=== PATIENT | male | born 1970 | race Caucasian/White ===

== ENCOUNTER 2017-09-13 14:53 | Emergency (ER) | payer BC ==
--- NOTE | 2017-09-13 14:55 | EDM.PDOC ---
ED HPI GENERAL MEDICAL PROBLEM - General Chief Complaint: Neuro Symptoms/Deficits Stated Complaint: STROKE, AMB Time Seen by Provider: 09/13/17 14:55 Source of Information: Reports: Patient, Old Records, Provider (Dr. Owens), RN , RN Notes Reviewed History Limitations: Reports: No Limitations - History of Present Illness INITIAL COMMENTS - FREE TEXT/NARRATIVE: Pt sent to ER from clinic by wheelchair by Dr. Owens for evaluation of possible stroke. Pt reports onset of tingling in the left side of the tongue, left face, and left upper and lower extremities. Pt reports the left arm and leg feel tired and slightly heavy, but not weak. He denies facial droop, headache, slurred speech, difficulty swallowing, visual changes, chest pain, palpitations, lightheadedness, syncope, or any other symptoms. Pt reports the symptoms began on Sunday, September 08. Onset Date: 09/08/17 Duration: Constant, Waxing/Waning - Related Data Allergies Allergy/AdvReac Type Severity Reaction Status Date / Time codeine Allergy Shortness Verified 09/13/17 15:26 of Breath Home Meds: Home Meds Ezetimibe 10 mg PO DAILY 09/13/17 [History] Pravastatin Sodium 80 mg PO DAILY 09/13/17 [History] Past Medical History Cardiovascular History: Reports: High Cholesterol Social & Family History - Family History Cardiac: Reports: CAD (father), Pacemaker (father) GI: Reports: Other (See Below) (colitis: mother) - Tobacco Use Smoking Status *Q: Never Smoker Second Hand Smoke Exposure: No - Alcohol Use Alcohol Use History: Yes Alcohol Use Frequency: Socially - Recreational Drug Use Recreational Drug Use: No - Living Situation & Occupation Living situation: Reports: , with Family Occupation: Employed ED ROS GENERAL - Review of Systems Review Of Systems: ROS reveals no pertinent complaints other than HPI. ED EXAM, NEURO - Physical Exam Exam: See Below Exam Limited By: No Limitations General Appearance: Alert, WD/WN, No Apparent Distress Eye Exam: Bilateral Eye: EOMI, Normal Inspection, PERRL Ears: Normal External Exam, Hearing Grossly Normal Nose: Normal Inspection, Normal Mucosa, No Blood Throat/Mouth: Normal Inspection, Normal Lips, Normal Teeth, Normal Gums, Normal Oropharynx, Normal Voice, No Airway Compromise Head Exam: Atraumatic, Normocephalic Neck: Normal Inspection, Supple, Non-Tender, Full Range of Motion. No: Carotid Bruit Respiratory/Chest: No Respiratory Distress, Lungs Clear, Normal Breath Sounds, No Accessory Muscle Use, Chest Non-Tender Cardiovascular: Normal Peripheral Pulses, Regular Rate, Rhythm, No Edema, No Gallop, No JVD, No Murmur, No Rub GI/Abdominal: Normal Bowel Sounds, Soft, Non-Tender, No Organomegaly, No Distention, No Abnormal Bruit, No Mass (Male) Exam: Deferred Rectal (Males) Exam: Deferred Neurological: Alert, Normal Mood/Affect, Normal Dorsiflexion, CN II-XII Intact, Normal Plantar Flexion, Normal Gait, Normal Reflexes, No Motor/Sensory Deficits , Oriented x 3, Other (See RN doc. of NIH stroke scale. NIH score: 0) Back Exam: Normal Inspection, Full Range of Motion, NT Extremities: Normal Inspection, Normal Range of Motion, Non-Tender, No Pedal Edema, Normal Capillary Refill Psychiatric: Normal Affect, Normal Mood Skin Exam: Warm, Dry, Intact, Normal Color, No Rash EKG INTERPRETATION EKG Date: 09/13/17 Time: 15:05 Rhythm: Other (SR) Rate (Beats/Min): 57 [place]: LAD-Left [place] Deviation P-Wave: Present QRS: Normal ST-T: Normal QT: Normal Comparison: NA - No Prior EKG Course - Vital Signs Last Recorded V/S: Last Vital Signs Temp 36.0 C 09/13/17 15:19 Pulse 62 09/13/17 15:19 Resp 14 09/13/17 15:19 BP 130/81 09/13/17 15:19 Pulse Ox 96 09/13/17 15:19 - Orders/Labs/Meds Orders: Active Orders 24 hr Category Date Time Status Blood Glucose Check, Bedside [RC] ONETIME Care 09/13/17 14:57 Active EKG 12 Lead [EKG Documentation Completion] [RC] STAT Care 09/13/17 14:56 Active NIH Stroke Scale [RC] ASDIRECTED Care 09/13/17 14:56 Active Peripheral IV Care [RC] . DIRECTED Care 09/13/17 14:57 Active DRUG SCREEN URINE BIORAD [URCHEM] Stat Lab 09/13/17 15:45 Ordered UA W/MICROSCOPIC [URIN] Stat Lab 09/13/17 15:45 Ordered Sodium Chloride 0.9% [Saline Flush] Med 09/13/17 14:57 Active 10 ml FLUSH ASDIRECTED PRN Peripheral IV Insertion Adult [OM.PC] Stat Oth 09/13/17 14:56 Ordered Medication Orders Sodium Chloride (Saline Flush) 10 ml FLUSH ASDIRECTED PRN PRN Reason: Keep Vein Open Last Admin: 09/13/17 15:05 Dose: 10 ml Labs: Laboratory Tests 09/13/17 09/13/17 09/13/17 Range/Units 15:08 15:08 15:08 WBC 7.3 (5.0-10.0) 10^3/uL RBC 4.96 (4.6-6.2) 10^6/uL Hgb 15.0 (14.0-18.0) g/dL Hct 43.1 (40.0-54.0) % MCV 86.9 (80-100) fL MCH 30.2 (27.0-34.0) pg MCHC 34.8 (33.0-35.0) g/dL Plt Count 196 (150-450) 10^3/uL Neut % (Auto) 65.5 (42.2-75.2) % Lymph % (Auto) 22.8 (20.5-50.1) % [place] % (Auto) 10.6 H (2-8) % Eos % (Auto) 0.8 L (1.0-3.0) % Baso % (Auto) 0.3 (0.0-1.0) % APTT 25.0 (22.0-34.0) SEC Sodium 138 (135-145) mmol/L Potassium 3.7 (3.6-5.0) mmol/L Chloride 101 (101-111) mmol/L Carbon Dioxide 29.0 (21.0-31.0) mmol/L Anion Gap 11.7 BUN 16 (7-18) mg/dL Creatinine 0.9 (0.6-1.3) mg/dL Est Cr Clr Drug Dosing 110.17 mL/min Estimated GFR (MDRD) > 60 BUN/Creatinine Ratio 17.77 Glucose TNP Calcium 9.4 (8.4-10.2) mg/dl Magnesium 1.8 (1.8-2.5) mg/dL Total Bilirubin 0.9 (0.2-1.0) mg/dL AST 15 (10-42) IU/L ALT 14 (10-60) IU/L Alkaline Phosphatase 52 (42-121) IU/L Troponin I < 0.02 (0.00-0.02) ng/ml Total Protein 7.8 (6.7-8.2) g/dl Albumin 4.6 (3.2-5.5) g/dl Globulin 3.2 Albumin/Globulin Ratio 1.44 TSH, Ultra Sensitive (0.45-5.33) uIu/mL Urine Color (YELLOW) Urine Appearance (CLEAR) Urine pH (5.0-9.0) Ur Specific [place] (1.005-1.030) Urine Protein (NEGATIVE) Urine Glucose (UA) (NEGATIVE) Urine Ketones (NEGATIVE) Urine Occult Blood (NEGATIVE) Urine Nitrite (NEGATIVE) Urine Bilirubin (NEGATIVE) Urine Urobilinogen (0.2-1.0) mg/dL Ur Leukocyte Esterase (NEGATIVE) Urine RBC /HPF Urine WBC (0-5/HPF) /HPF Ur Epithelial Cells /HPF Urine Bacteria (0-FEW/HPF) /HPF Urine Opiates Screen (NEGATIVE) Ur Oxycodone Screen (NEGATIVE) Urine Methadone Screen (NEGATIVE) Ur Barbiturates Screen (NEGATIVE) U Tricyclic Antidepress (NEGATIVE) Ur Phencyclidine Scrn (NEGATIVE) Ur Amphetamine Screen (NEGATIVE) U Methamphetamines Scrn (NEGATIVE) Urine MDMA Screen (NEGATIVE) U Benzodiazepines Scrn (NEGATIVE) Urine Cocaine Screen (NEGATIVE) U Marijuana (THC) Screen (NEGATIVE) Ethyl Alcohol < 5 mg/dL 09/13/17 09/13/17 09/13/17 Range/Units 15:08 15:45 15:45 WBC (5.0-10.0) 10^3/uL RBC (4.6-6.2) 10^6/uL Hgb (14.0-18.0) g/dL Hct (40.0-54.0) % MCV (80-100) fL MCH (27.0-34.0) pg MCHC (33.0-35.0) g/dL Plt Count (150-450) 10^3/uL Neut % (Auto) (42.2-75.2) % Lymph % (Auto) (20.5-50.1) % [place] % (Auto) (2-8) % Eos % (Auto) (1.0-3.0) % Baso % (Auto) (0.0-1.0) % APTT (22.0-34.0) SEC Sodium (135-145) mmol/L Potassium (3.6-5.0) mmol/L Chloride (101-111) mmol/L Carbon Dioxide (21.0-31.0) mmol/L Anion Gap BUN (7-18) mg/dL Creatinine (0.6-1.3) mg/dL Est Cr Clr Drug Dosing mL/min Estimated GFR (MDRD) BUN/Creatinine Ratio Glucose Calcium (8.4-10.2) mg/dl Magnesium (1.8-2.5) mg/dL Total Bilirubin (0.2-1.0) mg/dL AST (10-42) IU/L ALT (10-60) IU/L Alkaline Phosphatase (42-121) IU/L Troponin I (0.00-0.02) ng/ml Total Protein (6.7-8.2) g/dl Albumin (3.2-5.5) g/dl Globulin Albumin/Globulin Ratio TSH, Ultra Sensitive 1.48 (0.45-5.33) uIu/mL Urine Color Straw (YELLOW) Urine Appearance Clear (CLEAR) Urine pH 7.0 (5.0-9.0) Ur Specific [place] 1.010 (1.005-1.030) Urine Protein Negative (NEGATIVE) Urine Glucose (UA) Negative (NEGATIVE) Urine Ketones Negative (NEGATIVE) Urine Occult Blood Negative (NEGATIVE) Urine Nitrite Negative (NEGATIVE) Urine Bilirubin Negative (NEGATIVE) Urine Urobilinogen 0.2 (0.2-1.0) mg/dL Ur Leukocyte Esterase Negative (NEGATIVE) Urine RBC Not seen /HPF Urine WBC 0-5 (0-5/HPF) /HPF Ur Epithelial Cells Not seen /HPF Urine Bacteria Rare (0-FEW/HPF) /HPF Urine Opiates Screen Negative (NEGATIVE) Ur Oxycodone Screen Negative (NEGATIVE) Urine Methadone Screen Negative (NEGATIVE) Ur Barbiturates Screen Negative (NEGATIVE) U Tricyclic Antidepress Negative (NEGATIVE) Ur Phencyclidine Scrn Negative (NEGATIVE) Ur Amphetamine Screen Negative (NEGATIVE) U Methamphetamines Scrn Negative (NEGATIVE) Urine MDMA Screen Negative (NEGATIVE) U Benzodiazepines Scrn Negative (NEGATIVE) Urine Cocaine Screen Negative (NEGATIVE) U Marijuana (THC) Screen Negative (NEGATIVE) Ethyl Alcohol mg/dL Meds: Medications Generic Name Dose Route Start Last Admin Trade Name Freq PRN Reason Stop Dose Admin Sodium Chloride 10 ml 09/13/17 14:57 09/13/17 15:05 Saline Flush FLUSH 10 ml ASDIRECTED PRN Administration Keep Vein Open Discontinued Medications Generic Name Dose Route Start Last Admin Trade Name Freannetta PRN Reason Stop Dose Admin Aspirin 325 mg 09/13/17 16:14 09/13/17 16:20 Aspirin PO 09/13/17 16:15 325 mg ONETIME ONE Administration - Radiology Interpretation Free Text/Narrative:: Chest x-ray: No acute cardiopulmonary abnormality. See rad report. CT head: Uniformly thick bony calvarium without sign of skull fracture, pathologic skeletal lesion, underlying brain contusion or epidural/subdural hematoma. Symmetric clear pneumonization of the mastoid and paranasal sinuses. Physiologic midline falx/pineal and symmetric choroid plexus calcifications. See rad report. - Re-Assessments/Exams Free Text/Narrative Re-Assessment/Exam: 09/13/17 I discussed the case, exam findings, and diagnostic results via phone with Dr. Owens, and he agrees to see the pt in f/u next week for further evaluation. Departure - Departure Time of Disposition: 16:15 Disposition: Home, Self-Care 01 Condition: Good Clinical Impression: Paresthesia - Discharge Information Instructions: Paresthesia Forms: ED Department Discharge Additional Instructions: Take Enteric Coated Aspirin 81mg: Two tablets by mouth once every day. Follow in clinic with Dr. Owens next week for further evaluation. - My Orders Last 24 Hours: My Active Orders 09/13/17 14:56 EKG 12 Lead [EKG Documentation Completion] [RC] STAT NIH Stroke Scale [RC] ASDIRECTED Peripheral IV Insertion Adult [OM.PC] Stat 09/13/17 14:57 Blood Glucose Check, Bedside [] ONETIME Peripheral IV Care [RC] . DIRECTED Sodium Chloride 0.9% [Saline Flush] 10 ml FLUSH ASDIRECTED PRN 09/13/17 15:45 DRUG SCREEN URINE BIORAD [URCHEM] Stat UA W/MICROSCOPIC [URIN] Stat - Assessment/Plan Last 24 Hours: My Active Orders 09/13/17 14:56 EKG 12 Lead [EKG Documentation Completion] [RC] STAT NIH Stroke Scale [RC] ASDIRECTED Peripheral IV Insertion Adult [OM.PC] Stat 09/13/17 14:57 Blood Glucose Check, Bedside [RC] ONETIME Peripheral IV Care [RC] . DIRECTED Sodium Chloride 0.9% [Saline Flush] 10 ml FLUSH ASDIRECTED PRN 09/13/17 15:45 DRUG SCREEN URINE BIORAD [URCHEM] Stat UA W/MICROSCOPIC [URIN] Stat
[2017-09-13] MEDS ORDERED: Sodium Chloride 0.9% 10 ML Syringe FLUSH PRN (14:57)
--- NOTE | 2017-09-13 15:13 | CT ---
Clinical history: 47-year-old male numbness face and weakness left upper extremity. Rule out possible "stroke". Scan technique: Volume acquisition of data emergency unenhanced CT scan of the head and brain obtaine d while the patient was lying supine on the Siemens multi slice scanner [place], [place]. All data archived in the PACS system for storage and study (bone/brain windows). Interpretation: Negative exam. 1. Uniformly thick bony calvarium without sign of skull fracture, pathologic skeletal lesion, underly ing brain contusion or epidural/subdural hematoma. Symmetric clear pneumatization of the mastoid and paranasal sinuses. 2. Physiologic midline falx/pineal and symmetric choroid plexus calcifications. *Specifically, no sign of acute intracerebral/intraventricular/subarachnoid bleed. 3. Mild atrophy. Underlying mirror-image normal ventricular system. No hydrocephalus. 4. Cerebellum and brainstem unremarkable. 5. No supratentorial or posterior fossa mass lesion. No focal areas of ischemic infarct or signs of e ncephalomalacia.
--- NOTE | 2017-09-13 15:14 | CR ---
Clinical history: 47-year-old male left-sided weakness. "Negative" emergency CT scan head. Interpretation: Normal cardiac silhouette without alveolar edema or dependent effusion. No lung mass, hilar lymphadenopathy or focal lobar pneumonia. No atelectasis/collapse. No pneumothorax. Hypertrophic arthritic changes dorsal spine. CONCLUSION: No acute cardiopulmonary abnormality.
[2017-09-13 15:38] LABS: ANION GAP 11.7; CHLORIDE,CL 101 mmol/L (101-111); SODIUM,NA 138 mmol/L (135-145)
[2017-09-13] MEDS ORDERED: Aspirin 325 MG Tab PO ONE (16:14)
--- NOTE | 2017-09-14 11:51 | EKG ---
09/13/2017 - JACKY DUFFY - TIME: 3:05 p.m. FINDINGS: EKG shows a heart rate of 57 beats per minute with a sinus bradycardia rhythm. [facility] /[id number]
--- NOTE | 2017-09-15 12:37 | EKG ---
09/13/2017 - JACKY DUFFY - TIME: 3:05 p.m. EKG shows a heart rate of 57 beats per minute with a sinus bradycardia. [facility] /[id number]
== END 2017-09-13 15:29 | disposition home or self-care (01) ==
LOC: DL.ED 14:53
DX: R20.2 Paresthesia of skin (principal); E78.00 Pure hypercholesterolemia, unspecified; Z79.899 Other long term (current) drug therapy; Z88.5 Allergy status to narcotic agent
CPT/HCPCS: 36415; 70450; 71045; 80053; 80305; 81001; 82962; 83735; 84443; 84484; 85025; 85730; 93005; 99284; A9270; G0480; J7050

== ENCOUNTER 2020-12-02 06:27 | Day surgery (SDC) | payer BC ==
[~2020-12-02 06:27] MED LIST: Dextrose 5%-0.45% NaCl 1,000 ML IV SCH; Midazolam 1 MG/ML 2 ML SDV ONE; Sodium Chloride 0.9% 10 ML Syringe FLUSH PRN; fentaNYL 100 MCG/2 ML SDV ONE
[2020-12-02] MEDS ORDERED: fentaNYL 100 MCG/2 ML SDV IV ONE ×4 (06:28→07:32)
[2020-12-02] MEDS ORDERED: Midazolam 1 MG/ML 2 ML SDV IV ONE ×7 (06:28→07:29)
--- NOTE | 2020-12-02 13:10 | OR ---
DATE: 12/02/2020 PROCEDURE: Total colonoscopy. INSTRUMENT USED: [id number]-TM937M Olympus video colonoscope. PREMEDICATIONS: Fentanyl 125 mcg intravenous, Versed 4 mg intravenous. Nasal O2 cannula. The procedure was done under pulse oximetry, BP recording, and satellite project site monitor. INDICATION: Screening colonoscopic examination is done for detection of any polypoid lesions and removal, endoscopic hemostasis therapy if needed. DESCRIPTION OF PROCEDURE: Initial rectal exam was unremarkable. Rigid anoscopy was normal. The colonoscope was passed with ease up to the ileocecal area. Photographs were taken of the normal-appearing cecum identified by landmarks of appendiceal orifice and double-bulged ileocecal folds. No bleeding was noted from any of the visualized areas at the commencement of the examination. The bowel preparation was found to be adequate. [place] scale 2 in right and left colon, 3 in transverse colon, total score 7. No stricture. No vascular ectasia. No large isolated ulcerations seen. No evidence of diffuse inflammatory bowel disease in the form of friability, contact bleeding, or ulcerations. No polyp or tumor mass identified. Probing the proximal sides of folds and flexures using adequate distention and clearing up the stool material, withdrawal of the scope was made, cecum to rectum time over 6 minutes. No bleeding was noted from any of the visualized areas at the completion of the examination. IMPRESSION: Normal study. The patient tolerated the procedure well. [facility] /[id number]
== END 2020-12-02 09:51 | disposition home or self-care (01) ==
LOC: DL.ENDO 06:27
PROVIDERS: ATTEND Internal Medicine Gastroenterology
DX: Z12.11 Encounter for screening for malignant neoplasm of colon (principal); Z88.6 Allergy status to analgesic agent; Z88.8 Allergy status to other drugs, medicaments and biological substances
CPT/HCPCS: 45378; J2250; J3010; J7042